=== PATIENT | male | born 2005 | race African-American/Black ===

== ENCOUNTER 2025-08-15 05:50 | Emergency (ER) | payer BC, SELFPAY ==
--- OUTSIDE RECORDS SUMMARY | 2025-08-15 05:52 | XMS_ITS | Clinical Summary ---
Author Organization [facility] Address [address] [place] [address] Care Team Providers Care Motor Vehicles Inspector Name Role Phone Juana Kim MD Primary Care Provider [phone] [facility],non-owned Affiliates and Associated Physician Practices is amultiple site organization consisting of ambulatory clinics and hospital sitesin [place], [place], [place] and [place]. This disclosure is being madepursuant to the Care Everywhere program and may not contain all information available regarding this patient. Last updated [email or web address] Allergies No known active allergies Medications * Be aware that medications may not be up to date on this document. Alwaysverify current medications with the patient. ibuprofen (ADVIL; MOTRIN) 100 MG/5ML suspension Take 13 mL by mouth every 6 hours as needed for Pain or Fever 237 mL 10/06/2021 Active Active Problems Problem Noted Date Diagnosed Date VERO (obstructive sleep apnea) 09/19/2013 Overview (11/29/2013): diag psg 09/08/13 AHI 2.1 RDI 2.9 Min 02 sat 93% CPAP titration 11/08/13 Titrated to 6 cm H20 Social History Tobacco Use Types Packs/Day Years Used Date Smoking Tobacco: Never Smokeless Tobacco: Never Alcohol Use Standard Drinks/Week Comments Never 0 (1 standard drink = 0.6 oz pur e alcohol) Sex and Gender Information Value Date Recorded Sex Assigned at Not on file 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 Gender Identity Not on file Sexual Orientation Not on file Last Filed Vital Signs Vital Sign Reading Time Taken Comments Blood Pressure 118/74 10/06/2021 2:23 PM CRACKLING PRESS OPERATOR Pulse 74 10/06/2021 2:23 PM CRACKLING PRESS OPERATOR Temperature 36.7 C (98.1 F) 10/06/2021 2:23 PM CRACKLING PRESS OPERATOR Respiratory Rate 18 10/06/2021 2:23 PM CRACKLING PRESS OPERATOR Oxygen Saturation 100% 08/22/2021 8:46 AM CDT Inhaled Oxygen Concentration - - Weight 51.9 kg (114 lb 6.7 oz) 10/06/2021 2:23 P M CRACKLING PRESS OPERATOR Height 185.4 cm (6' 1) 10/06/2021 2:23 PM CRACKLING PRESS OPERATOR Body Mass Index 15.1 10/06/2021 2:23 PM CRACKLING PRESS OPERATOR Plan of Treatment Health Maintenance Due Date Last Done Comments HIV SCREENING 2020 HPV VACCINE (1 - Male 3-dose series) 2020 MENINGOCOCCAL (Group B) VACC INE SHARED DECISION-MAKING (1 of 2 - Standard) 2021 HEPATITIS C SCREENING 05/18/2023 DTAP/TDAP/TD VACCINES (1 - Tdap) 2024 HEPATITIS B VACCINE (1 of 3 - 19+ 3-dose series) 2024 DEPRESSION SCREENING 11/22/2024 COVID-19 VACCINE (1 - 2023-2 5 season) 2025 INFLUENZA VACCINE (#1) 2025 ZOSTER VACCINE (1 of 2) 2055 HIB VACCINE Aged Out No longer eligi ble based on patient's age to complete this topic MENINGOCOCCAL GROUPS A/C/Y/W VACCINE Aged Out No longer eligible b ased on patient's age to complete this topic PNEUMOCOCCAL VACCINE Aged Out No long er eligible based on patient's age to complete this topic Insurance ANTH Care Teams Motor Vehicles Inspector Relationship Specialty Start Date End Date Juana Kim MD PCP - General Pediatrics 09/09/13
[2025-08-15 05:56] VITALS: BP 114/81; PULSE 115; RESP 16; TEMP 37.3; O2SAT 96
[2025-08-15 06:18] VITALS: BP 111/66; PULSE 111; RESP 25; O2SAT 95
--- NOTE | 2025-08-15 06:19 | ECG_ITS ---
Test Date: 2025-08-15 06:22:01 Measurements Intervals [place] Rate: 106 P: 78 DC: 148 QRS: 85 QRSD: 86 T: 72 QT: 305 QTc: 405 Interpretive Statements SINUS TACHYCARDIA OTHERWISE NORMAL ECG No previous ECG available for comparison Electronically Signed On 08-15-2025 07:37:59 CDT by Rakesh Prieto M.D.
[2025-08-15 06:20] VITALS: O2SAT 100
[2025-08-15 06:44] LABS: Influenza A QL RT-PCR Negative (Negative); Influenza B QL RT-PCR Negative (Negative); RSV RNA, RT-PCR Negative (Negative); SARS-CoV-2 RNA PCR Negative (Negative)
[2025-08-15 06:52] LABS: Strep Group A RT-PCR NOT DETECTED (Negative)
[2025-08-15 07:01] VITALS: BP 116/67; PULSE 88; RESP 23; O2SAT 97
--- OUTSIDE RECORDS SUMMARY | 2025-08-15 07:19 | XMS_ITS | Clinical Summary ---
Author Organization [facility] Address [address] [place] [address] Care Team Providers Care Licensed Midwife Name Role Phone Juana Kim MD Primary Care Provider [phone] Source Comments [facility],non-owned Affiliates and Associated Physician Practices is amultiple site organization consisting of ambulatory clinics and hospital sitesin [place], [place] and [place]. This disclosure is being madepursuant to the Care Everywhere program and may not contain all information available regarding this patient. 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 Gender Identity Not on file Sexual Orientation Not on file Last Filed Vital Signs Vital Sign Reading Time Taken Comments Blood Pressure 118/74 10/06/2021 2:23 PM LEAD ELECTRICIAN Pulse 74 10/06/2021 2:23 PM LEAD ELECTRICIAN Temperature 36.7 C (98.1 F) 10/06/2021 2:23 PM LEAD ELECTRICIAN Respiratory Rate 18 10/06/2021 2:23 PM LEAD ELECTRICIAN Oxygen Saturation 100% 08/22/2021 8:46 AM CDT Inhaled Oxygen Concentration - - Weight 51.9 kg (114 lb 6.7 oz) 10/06/2021 2:23 P M LEAD ELECTRICIAN Height 185.4 cm (6' 1) 10/06/2021 2:23 PM LEAD ELECTRICIAN Body Mass Index 15.1 10/06/2021 2:23 PM LEAD ELECTRICIAN Plan of Treatment Health Maintenance Due Date [...] complete this topic Insurance ANTH Care Teams Licensed Midwife Relationship Specialty Start Date End Date Juana Kim MD PCP - General Pediatrics 09/09/13
--- NOTE | 2025-08-15 07:35 | ED_ITS ---
HPI - URI/Sore Throat General Chief Complaint: Upper Respiratory Infection Stated Complaint: Headache, sore throat, body aches Time Seen by Provider: 08/15/25 07:02 Source: patient Mode of arrival: ambulatory Limitations: no limitations History of Present Illness HPI Narrative: 20-year-old otherwise healthy here with a complains of sore throat, body aches, fevers since last night. He also states that he has pain when he breathes at times. He denies any cough. MD elicited complaint: fever, sore throat, rhinorrhea and nasal congestion Onset (ago): hour(s) (6) Severity: moderate Exacerbating factors: nothing Relieving factors: nothing Related Data Allergies Allergy/AdvReac Type Severity Reaction Status Date / Time No Known Allergies Allergy Mild Verified 08/15/25 05:51 Review of Systems Review of Systems: All systems reviewed & are unremarkable except as noted in HPI and below ROS unobtainable: Yes unobtainable due to endotracheal tube Constitutional: Constitutional: Reports no additional constitutional complaints Eyes: Eyes: Reports no additional eye complaints ENT: Reports system reviewed and no additional complaints, except as documented Respiratory: Respiratory: Reports no additional respiratory complaints Gastrointestinal: Gastrointestinal: Reports no additional gastrointestinal complaints Musculoskeletal: Musculoskeletal: Reports no additional musculoskeletal complaints Neurologic: Reports system reviewed and no additional complaints, except as documented Psychiatric: Psychiatric: Reports no additional psychiatric complaints Endocrine: Endocrine: Reports no additional endocrine complaints Exam Narrative: GENERAL: Well-appearing, well-nourished, and in no acute distress. HEAD: Normocephalic, atraumatic. EYES: PERRLA and EOMI. ENT: Nares clear, no rhinorrhea or epistaxis. Mucous membranes moist. NECK: Supple. CHEST: Clear to auscultation. No respiratory distress. HEART: Regular rate and rhythm. No murmur heard. EXTREMITIES: Normal range of motion. No edema. SKIN: Warm, dry, no rash. NEURO: No focal deficits. Alert and oriented x3. PSYCH: Normal mood and affect. Course Course Emergency Course: Notified patient about his lab work. Advised him to drink plenty of fluids, rest, take Tylenol or ibuprofen for body aches and fever. Vital Signs Vital signs: Vital Signs Temperature 37.3 C 08/15/25 05:56 Pulse Rate 115 H 08/15/25 05:56 Respiratory Rate 16 08/15/25 05:56 Blood Pressure 114/81 08/15/25 05:56 Pulse Oximetry 96 08/15/25 05:56 Oxygen Delivery Room Air 08/15/25 05:56 Temperature 37.3 C 08/15/25 05:56 Pulse Rate 88 08/15/25 07:01 Respiratory Rate 23 H 08/15/25 07:01 Blood Pressure 116/67 08/15/25 07:01 Pulse Oximetry 97 08/15/25 07:01 Oxygen Delivery Room Air 08/15/25 06:20 MDM - URI/Sore Throat Lab Data Labs: Lab Results 08/15/25 08/15/25 Range/Units 05:56 06:24 Influenza A (RT-PCR) Negative (Negative) Influenza B (RT-PCR) Negative (Negative) RSV (RT-PCR) Negative (Negative) SARS-CoV-2 RNA (RT-PCR) Negative (Negative) Group A Strep (PCR) Not detected (Negative) Discharge Plan Discharge Clinical Impression: Viral infection Patient Disposition: Home Condition: Stable Instructions: Antibiotic Form, Viral Syndrome (ED) Additional Instructions: Drink more fluids take Tylenol or ibuprofen for pain , body aches or fever. Patient Language: Ecuadorean Follow-up/Referrals: PHYSICIAN,ANALYTICS ARCHITECT [Primary Care Provider, Internal Medicine] Rishabh Mcqueen MD [Physician, Family Practice] Time of Disposition: 07:39
[2025-08-15 07:54] VITALS: BP 114/67; PULSE 106; RESP 20; TEMP 37.1; O2SAT 100
== END 2025-08-15 07:55 | disposition home or self-care (01) ==
PROVIDERS: Student in an Organized Health Care Education/Training Program; Emergency Provider Family Medicine
DX: B34.9 Viral infection, unspecified (principal); Z20.822 Contact with and (suspected) exposure to COVID-19
CPT/HCPCS: 87637; 87651; 93005; 99283